=== PATIENT | female | born 1995 | race Two or more races ===

== ENCOUNTER 2025-05-15 14:52 | Observation (INO) | payer MEDICAID, SELFPAY ==
[2025-05-15] VITALS (7 sets, daily range): BP systolic 115–130; BP diastolic 75–95; PULSE 67–103; RESP 12–18; TEMP 36.4–36.8; O2SAT 98–100; BMI 27.3
--- NOTE | 2025-05-15 | XR_ITS ---
Examination: CT abdomen with intravenous contrast CT pelvis with intravenous contrast 2-D coronal reconstructions 2-D sagittal reconstructions Date and time of exam:May 15, 2025, 1843 hours INDICATIONS: Epigastric pain and nausea vomiting. CTDI: vol (mGy) 7.99 DLP: (mGycm) 422 Technique: Multiple axial sections of the abdomen and pelvis have been obtained. 64 slice high-resolution scanner used. 3 mm axial sections have been obtained, post intravenous injection 60 cc Isovue 370 2-D sagittal, coronal reconstructions obtained. Low dose protocols were performed. One or more of the following dose reduction techniques were used; automated exposure control, adjustment of the mA and/or KV according to patient size, use of iterative reconstruction technique. Findings: No focal liver or splenic lesions. No gallstones. No pancreatic edema. No renal or ureteral calculi. No hydronephrosis 10 mm fat-containing umbilical hernia. Fluid-filled enlarged appendix with thickened bennett and mild periappendiceal inflammatory change, axial images 140 through 154 No pelvic abscess 17 mm right ovarian follicular cyst Impression : Acute appendicitis, no pelvic abscess or perforation
--- NOTE | 2025-05-15 15:42 | EDNOTE_ITS ---
<Statement entered by Jennifer Rodriguez MD - 05/23/25 04:09> As co-signing physician, I was present and available for consult prn. I concur with the plan and care as documented by the midlevel provider. ED Abdominal Pain RME/HPI General Chief Complaint: Abdominal Pain Stated complaint: Abdominal pain to middle upper abdomen Time seen by provider: 05/15/25 15:07 Arrival date/time: 05/15/25 14:52 RME / HPI RME / HPI narrative: 30-year-old female presents to the ED with a complaint of epigastric abdominal pain, nausea that began this morning. She denies any previous occurrence. She states she is unable to eat anything due to the nausea. She denies any diarrhea but states she does have constipation. There is no family history of gallbladder disease or ulcers. She denies any fever or chills, upper res piratory complaints, dysuria or frequency. Related Data Previous Rx's ?Medication ?Instructions ?Recorded Phenazopyridine * (PYRIDIUM *) 100 mg PO TIDPC #14 tab s 05/16/15 Allergies Allergy/AdvReac Type Severity Reaction Status Date / Time No Known Allergies Allergy Mild No Uncoded 05/15/25 14:57 allergies to medication. Review of Systems Review of Systems Systems Reviewed: All systems reviewed, normal except as documented Past Medical History Social History SMOKING STATUS: Never smoker ED Exam Narrative Physical exam: Alert and oriented 30-year-old female, mild acute pain distress. Lungs are clear, regular rate and rhythm, bowel sounds are present, mild percussive tenderness in all 4 quadrants, tenderness to palpation in all 4 quadrants, unable to specify where it is worse. No pain with pelvic rock or heeltap. Negative psoas and obturator. No CVA tenderness. Moves all extremities well. Course Course Course Narrative: Vital signs blood pressure 120/80, pulse 75, respirations 18 and nonlabored, temperature 97.6, O2 sat 98% on room air. CBC reveals an elevated white count of 23.6, normal H&H and mildly elevated platelets of 453. ANC is elevated at 21.5. Lactic acid is normal at 1.0, CRP is normal at 0.7 and procalcitonin is normal at 0.04. CMP is normal. Renal function and LFTs are normal. Lipase is normal at 22 and amylase is mildly low at 28. Urinalysis reveals clear yellow urine with a specific gravity of 1.032 with 4+ ketones, 2+ blood, negative nitrates, positive leukocyte esterase, 4 RBCs, 2 WBCs and no bacteria. Urine hCG is negative and UDS is positive for marijuana only. CT of the abdomen and pelvis with contrast reveals: Acute appendicitis, no pelvic abscess or perforation. Patient was started on IV fluids of D5 half-normal saline. Initially she was given Pepcid 40 mg p.o., Protonix 40 mg p.o. and ondansetron [address] results, patient was started on ceftriaxone 2 g IV as well as metronidazole 500 mg IV. Discussed case with Dr. Rodriguez. Attempted contact with Dr. Roldan. Left message on his voicemail at [phone]. Dr Roldan returned the call at [phone]. He would like the patient moved to the main ED for his evaluation and surgical prep. Quality Measures Current suspected stage: ruled out Reason for ruling out sepsis: Patient does not meet sepsis criteria. Possible source: GI tract/intra-abdominal Blood cultures ordered: yes Antibiotic ordered: Yes Pertinent labs: 05/15/25 18:08 Lactic Acid 1.0 mMol/L (0.4-2.0) Procalcitonin 0.04 ng/ml (0.0-0.49) sepsis Orders Category Date Time Status CT Screening NOW Care 05/15/25 15:[address] Screening X1 Care 05/15/25 15:48 Active IV [Insert IV] NOW Care 05/15/25 15:48 Active NPO STAT Care 05/15/25 15:[address] abdomen pelvis w con Stat Exams 05/15/25 Completed Amylase Stat Lab 05/15/25 15:56 Completed Blood Culture (Lab) Stat Lab 05/15/25 18:08 Received CBC Stat Lab 05/15/25 15:56 Completed CRP [C-Reactive Protein] Stat Lab 05/15/25 18:08 Completed Comprehensive Metabolic Panel Stat Lab 05/15/25 15:56 Completed Drug Screen,Urine Stat Lab 05/15/25 17:00 Completed HCG Qualitative,Urine Stat Lab 05/15/25 17:00 Completed Lactic Acid [Lactate (Lactic Acid)] Stat Lab 05/15/25 18:08 Completed Lipase Stat Lab 05/15/25 15:56 Completed Magnesium Stat Lab 05/15/25 15:56 Completed Phosphorous Stat Lab 05/15/25 15:56 Completed Procalcitonin Stat Lab 05/15/25 18:08 Completed Urinalysis, C/S if Indicated Stat Lab 05/15/25 17:00 Completed Dextrose 5%-0.45% Ns [D5-1/2Ns] 1,000 ml Med 05/15/25 18:30 Active IV 100 mls/hr Famotidine [Pepcid] Med 05/15/25 15:45 Discontinued 40 mg PO X1 ONE Ondansetron Odt [Zofran Odt] Med 05/15/25 15:45 Discontinued 4 mg PO X1 ONE Pantoprazole [Protonix] Med 05/15/25 15:45 Discontinued 40 mg PO X1 ONE cefTRIAXone [Rocephin] 2 gm Med 05/15/25 19:28 Active SODIUM CHLORIDE 0.9% (Popper) [Ns 0.9% (P)] 50 ml IV QDAY@1400 metroNIDAZOLE/NS 500 MG IVPB [Flagyl 500 mg IV] Med 05/15/25 19:29 Active 500 mg in 100 ml IV X1 Vital Signs Vital signs: Vital Signs Temperature 97.6 F 05/15/25 15:05 Pulse Rate 75 05/15/25 15:05 Respiratory Rate 18 05/15/25 15:05 Blood Pressure 120/80 05/15/25 15:05 Pulse Oximetry (%) 98 05/15/25 15:05 Oxygen Delivery Method Room Air 05/15/25 15:05 Abdominal Pain MDM MDM Narrative MDM Narrative:: 30-year-old female presents to the ED with a complaint of epigastric abdominal pain, nausea that began this morning. She denies any previous occurrence. She states she is unable to eat anything due to the nausea. She denies any diarrhea but states she does have constipation. There is no family history of gallbladder disease or ulcers. She denies any fever or chills, upper respiratory complaints, dysuria or frequency. Alert and oriented 30-year-old female, mild acute pain distress. Lungs are clear, regular rate and rhythm, bowel sounds are present, mild percussive tenderness in all 4 quadrants, tenderness to palpation in all 4 quadrants, unable to specify where it is worse. No pain with pelvic rock or heeltap. Negative psoas and obturator. No CVA tenderness. Moves all extremities well. Vital signs blood pressure 120/80, pulse 75, respirations 18 and nonlabored, temperature 97.6, O2 sat 98% on room air. CBC reveals an elevated white count of 23.6, normal H&H and mildly elevated platelets of 453. ANC is elevated at 21.5. Lactic acid is normal at 1.0, CRP is normal at 0.7 and procalcitonin is normal at 0.04. CMP is normal. Renal function and LFTs are normal. Lipase is normal at 22 and amylase is mildly low at 28. Urinalysis reveals clear yellow urine with a specific gravity of 1.032 with 4+ ketones, 2+ blood, negative nitrates, positive leukocyte esterase, 4 RBCs, 2 WBCs and no bacteria. Urine hCG is negative and UDS is positive for marijuana only. CT of the abdomen and pelvis with contrast reveals: Acute appendicitis, no pelvic abscess or perforation. Patient was started on IV fluids of D5 half-normal saline. Initially she was given Pepcid 40 mg p.o., Protonix 40 mg p.o. and ondansetron [address] results, patient was started on ceftriaxone 2 g IV as well as metronidazole 500 mg IV. Discussed case with Dr. Rodriguez. Attempted contact with Dr. Roldan. Left message on his voicemail at [phone]. Dr Roldan returned the call at 2001. He would like the patient moved to the main ED for his evaluation and surgical prep. Patient data External records reviewed:: [facility] previous records Clinical information provided by:: patient Social determinants that could affect healthcare access:: none Patient has the following chronic illnesses:: N/A How is presenting disease/condition affected by chronic disease/condition?: no chronic disease Evaluation data The following diagnostics were reviewed and interpreted by me:: lab results and radiology exam(s) Lab and/or radiology exams considered but not ordered:: N/A Interpretation Summary: As noted above Medications / Prescriptions Medications or Prescriptions considered but not ordered:: N/A Medication administrations:: Medication Administration History Dextrose/Sodium Chloride (D5-1/2ns) 1,000 mls @ 100 mls/hr IV .Q10H MARCY Stop: 06/14/25 18:29 Last Admin: 05/15/25 19:20 Dose: 100 mls/hr Documented By: AUSTIN Ceftriaxone Sodium 2 gm/ (Sodium Chloride) 50 mls @ 100 mls/hr IV QDAY@1400 MARCY Stop: 05/22/25 19:27 Metronidazole (Flagyl 500 Mg Iv) 500 mg in 100 mls @ 100 mls/hr IV X1 ONE Stop: 05/15/25 20:28 Discontinued Medications Famotidine (Famotidine 20 Mg Tablet) 40 mg PO X1 ONE Stop: 05/15/25 15:46 Last Admin: 05/15/25 16:08 Dose: 40 mg Documented By: DL Ondansetron HCl (Ondansetron Odt 4 Mg Tabrap) 4 mg PO X1 ONE; Protocol Stop: 05/15/25 15:46 Last Admin: 05/15/25 16:08 Dose: 4 mg Documented By: DL Pantoprazole Sodium (Pantoprazole 40 Mg Tablet) 40 mg PO X1 ONE Stop: 05/15/25 15:46 Last Admin: 05/15/25 16:08 Dose: 40 mg Documented By: DL As noted above Consultations Consultation(s) initiated? (list below): Yes Consultation #1 (Physician, Specialty, Details): Dr Roldan, left message on his voicemail to return my call. Time: 19:55 Diagnosis Differential diagnosis abdominal pain: abdominal pain, acute appendicitis, diverticulitis, pancreatitis and other (Cholecystitis) Most likely diagnosis given after review of the tests above:: Acute appendicitis Admission Indicated Admission indicated?: indicated Explain why admission is indicated or not indicated:: Patient has acute appendicitis and needs IV antibiotics and surgery. Admission Request Was there a request for admission?: Yes Admission Attestation Admission request attestation: Discussed case with Dr Roldan regarding admission. Discussed patients ED course, exam findings, labs, and radiology results. The Dr Roldan agrees to evaluate the patient for surgery/admission. Disposition Plan Disposition Plan: Admit Discharge Plan Plan Patient Disposition: Admit Acute Care w/in Hospital Discharge Disposition comment: Stable Prescriptions/Referrals Prescriptions/Med Rec: No Action Phenazopyridine * (PYRIDIUM *) 100 MG tablet 100 mg PO TIDPC Qty: 14 0RF Referrals: No Primary/Family,Physician [Primary Care Provider] - In 1 week Problem List Clinical Impression: Acute appendicitis Patient/Caregiver Discharge Instructions Print Language: Occitan Stand Alone Forms: Yesenia Award Info., Patient Portal Info Letter PA/MANAGER RISK MANAGEMENT Supervising Physician PA/MANAGER RISK MANAGEMENT Supervising Physician: Dr. RODRIGUEZ
[2025-05-15] MEDS: ONDANSETRON ODT 4 MG TABRAP PO (16:08)
[2025-05-15] MEDS: FAMOTIDINE 20 MG TABLET 40 MG PO (16:08)
[2025-05-15] MEDS: PANTOPRAZOLE 40 MG TABLET PO (16:08)
[2025-05-15 16:21] LABS: Basophils # (Auto) 0.1 Thou/mm3 (0.0-0.2); Basophils % (Auto) 0 % (0-2.5); Eosinophils # (Auto) 0.0 Thou/mm3 (0.0-0.5); Eosinophils % (Auto) 0 % (0-10); Hematocrit 40.6 % (36.0-46.0); Hemoglobin 13.8 g/dL (12.0-16.0); Immature Granulocytes Auto 0.11 Thou/mm3 (0.00-0.00); Lymphocytes # (Auto) 0.9 Thou/mm3 (1.0-4.8); Lymphocytes % (Auto) 4 % (10-50); Mean Corpuscular HGB Conc 34.0 g/dl (31.0-37.0); Mean Corpuscular Hemoglobin 27.8 pg (25.0-35.0); Mean Corpuscular Volume 82 fL (80-100); Monocytes # (Auto) 1.0 Thou/mm3 (0.0-0.8); Monocytes % (Auto) 4 % (0-12); Neutrophils # (Auto) 21.5 Thou/mm3 (1.8-7.7); Neutrophils % (Auto) 91 % (37-80); Nucleated Red Blood Cell # 0.00 Thou/mm3 (0.00-0.00); Nucleated Red Blood Cell % 0 /100 WBC (0); Platelet Count 453 Thou/mm3 (140-440); RDW Standard Deviation 39.3 fL (36.4-46.3); Red Blood Count 4.96 Miln/mm3 (4.00-5.20); White Blood Count 23.6 Thou/mm3 (3.6-11.0)
[2025-05-15 16:43] LABS: Alanine Aminotransferase 10 U/L (10-49); Albumin, Serum 5.0 gm/dL (3.5-5.0); Albumin/Globulin Ratio 1.8 (1.2-2.2); Alkaline Phosphatase 94 U/L (46-116); Amylase 28 U/L (30-118); Anion Gap 12 (7-16); Aspartate Amino Transferase 19 U/L (0-34); BUN/Creatinine Ratio 16 Ratio (12-20); Bilirubin,Total 0.9 mg/dL (0.3-1.2); Blood Urea Nitrogen 11 mg/dL (9-23); Calcium 9.3 mg/dL (8.3-10.6); Calcium (Corrected) 9.3 mg/dL (8.5-10.1); Carbon Dioxide 24.2 mMol/L (20.0-31.0); Chloride 105 mMol/L (98-107); Creatinine (Component) 0.7 mg/dL (0.6-1.3); Estimated Creatinine Clearance 115.5 mL/min (>60); Globulin 2.8 gm/dL (2.3-3.5); Glucose 86 mg/dL (74-106); Lipase 22 U/L (12-53); Magnesium 1.6 mg/dL (1.6-2.6); Osmolality,Calculated 279 (275-295); Phosphorous 2.9 mg/dL (2.4-5.1); Potassium 3.7 mMol/L (3.4-5.1); Sodium 141 mMol/L (136-145); Total Protein 7.8 gm/dL (5.7-8.2); eGFR > 60 See Note
[2025-05-15 17:10] LABS: Collection Type, Urine Clean Catch
[2025-05-15 17:40] LABS: HCG Qualitative,Urine Negative
[2025-05-15 17:41] LABS: Amphetamine/Methamp Scrn,U Negative (Negative); Barbiturate Screen,Urine Negative (Negative); Benzodiazepines Screen,Urine Negative (Negative); Benzoylecgonine Screen, Ur Negative (Negative); Fentanyl Screen,Urine Negative (Negative); Opiate Screen,Urine Negative (Negative); THC Screen,Urine Positive (Negative)
[2025-05-15 17:51] LABS: Bacteria,Urine Rare; Bilirubin,Urine Negative (Negative); Blood,Urine 2+ (Negative); Clarity,Urine Clear (Clear/Hazy); Color,Urine Yellow (Lt Yel-Yel); Culture Indicated,Urine Not Indicated; Glucose, Urine Negative (Negative); Hyaline Casts,Urine < 1 /hpf (0-1); Ketones,Urine 4+ (Negative); Leukocyte Esterase,Urine Positive (Negative); Nitrite,Urine Negative (Negative); PH,Urine 5.5 (5.0-7.0); Protein,Urine Trace (Neg - Trace); RBC,Urine 4 /hpf (0-3); Specific Gravity,Urine 1.032 (1.001-1.035); Squamous Epithelial Cell,Urine 12 /hpf (0-5); Urobilinogen,Urine Negative mg/dL (0.0-1.0); WBC,Urine 2 /hpf (0-5)
[2025-05-15 18:16] LABS: Lactate (Lactic Acid) 1.0 mMol/L (0.4-2.0)
[2025-05-15 18:44] LABS: C-Reactive Protein 0.7 mg/dL (0.0-0.9); Procalcitonin 0.04 ng/ml (0.0-0.49)
[2025-05-15] MEDS: DEXTROSE 5%-0.45% NS 1,000 ML 100 ML IV (19:20)
[2025-05-15] MEDS: cefTRIAXone 2 GM in SODIUM CHLORIDE 0.9% (Popper) 50 ML IV (20:21)
--- NOTE | 2025-05-15 21:19 | PD.SURHP ---
HPI Date of Admission 05/15/25 20:09 Chief Complaint Chief Complaint: This patient is a 30-year-old female who is seen because of acute appendicitis HPI History of present illness revealed that the patient was in her usual health until this morning when she woke up with a severe pain in the epigastric region. She had 1 vomiting. The pain was so severe and she could not tolerate and she could not eat anything. She had a normal bowel movement but rather constipated. She had no fever or chills. She came to the emergency room and was found to have tenderness diffusely and a CT scan showed acute appendicitis. She denies any other major medical illness in the past Past Medical History Past Medical History CARDIAC: Negative Cardiac Disorders or Congestive Heart Failure RESPIRATORY: Negative Chronic Obstructive Pulmonary Disease (COPD) or Asthma GENITOURINARY: Negative Renal Disease ENDOCRINE: Negative Diabetes Mellitus Type 1 or Diabetes Mellitus Type 2 HEMATOLOGIC: Negative Sickle Cell Disease OTHER HISTORY: Negative Blood Transfusions, Blood Transfusion Reaction or Anesthesia Reactions Social History SMOKING STATUS: Never smoker Meds Home Medications and Allergies Allergies Allergy/AdvReac Type Severity Reaction Status Date / Time No Known Allergies Allergy Mild No Uncoded 05/15/25 14:57 allergies to medication. Exam Vital Signs Temp Pulse Resp BP Pulse Ox O2 Del Method 98.3 F 71 18 117/75 99 Room Air 05/15/25 19:50 05/15/25 19:50 05/15/25 19:50 05/15/25 19:50 05/15/25 19:50 05/15/25 19:50 Narrative Exam Patient is a well-built well-nourished female who appeared to be in his stated age. She is 5 feet 4 inches tall weighing 159 pounds. Her vital signs are normal Routine Cardiovascular Exam Comments: Sinus rhythm Routine Abdominal Exam Comments: Examination of the abdomen showed some tenderness in the lower abdomen but more so on the right lower quadrant. Routine Rectal Exam Comments: Deferred Routine Exam Comments: Deferred Routine Extremities Exam Comments: Within normal limits Results Results: Laboratory Laboratory Narrative: WBC showed 23,600 with a shift to the lab Results: Imaging Imaging narrative: CT scan of the abdomen showed acute appendicitis Assessment & Plan Additional Assessment Additional comments: Impression: Acute appendicitis Plan Plan advised the patient to undergo laparoscopic appendectomy. The procedure was explained to her in detail patient is agreeable. Quality Measures Quality Measures sepsis Current suspected stage: sepsis Possible source: GI tract/intra-abdominal Blood cultures ordered: yes Antibiotic ordered: Yes
--- NOTE | 2025-05-15 22:50 | PD.SUROPNT ---
Date of Procedure 05/15/25 Pre Op Diagnosis Acute appendicitis Post Op Diagnosis Same Procedure Laparoscopic appendectomy Findings Patient was found to have inflamed appendix medial to the cecum Procedure Description After the patient was placed in supine position and anesthesia was administered with endotracheal intubation. Abdomen was prepped with ChloraPrep solution and draped in a sterile manner. A timeout was performed and a small incision was made just above the umbilicus. Fascia was cleaned and Veress needle was inserted to obtain a pneumoperitoneum up to 15 mmHg. Then I introduced a 12 mm trocar at the umbilicus with a 10 mm camera. Patient was kept in Trendelenburg position with the left lateral tilt. Intra-abdominal organs were visualized and this showed omentum covering the right lower quadrant. A 5 mm trocar was inserted in the right lower quadrant under direct vision and using a laparoscopic Holly I move the omentum and identified the appendix. Appendix was inflamed in its entire length and was located medial to the cecum. Another 5 mm trocar was inserted in the left lower quadrant under direct vision and using Harmonic balta I dissected the mesoappendix cauterizing the vessels. When the base of the appendix was reached this was stapled using an Endo cutter 35 power brandon. Then the appendix was retrieved through the Endopouch through the umbilical port. Then after irrigating and cleaning the pelvis and the right lower quadrant all the trocars were pulled out and the pneumoperitoneum was let out. Fascia was closed with interrupted 0 Ethibond and then I injected half percent Marcaine with epinephrine for analgesia. Skin was then closed with interrupted 4-0 Monocryl stitches and a Tegaderm dressing was applied. Patient tolerated the procedure well and returned to recovery room in stable condition. Anesthesia GETA Pathology / specimen Other (Appendix that was inflamed) Estimated Blood Loss 30 Surgeon Maira Roldan MD Surgical Staff Operation Date: 05/15/25 21:45 Case Staff Anesthesiologist: Fly Marquez RN First Assistant: Nel Rhodes
[2025-05-15] MEDS: ONDANSETRON INJ 2 MG/ML INJ 2 ML 4 MG IVP (23:13)
--- NOTE | 2025-05-15 23:25 | SUR.PHASEI ---
2251: pt arrived to PACU via gurney drowsy but arouses to voice, breathing unlabored, dressing to abdomen clean, dry, and intact 2320: pt tolerating ice chips 2325: pt awake, alert, able to follow commands, breathing unlabored, dressing to abdomen clean, dry, and intact, VS stable, pt denies pain, report called to Sera RN, pt transferred to room at this time
--- NOTE | 2025-05-15 23:30 | PC.NURSE ---
Report received, pt arrived to room 371 via gurney, alert/oriented able to transfer self, nursing care began at this time.
[2025-05-15] MEDS: SODIUM CHLORIDE 0.9% 1000 ML 1,000 ML 125 ML IV (23:57)
[2025-05-15] MEDS: CEFOXITIN 2 GM in SODIUM CHLORIDE 0.9% (Popper) 50 ML IV (23:57)
[2025-05-16 00:09] VITALS: BMI 26.2
[2025-05-16] MEDS: MORPHINE SULF INJ 10 MG/ML VIAL 4 MG IVP (02:34)
[2025-05-16] MEDS: ONDANSETRON INJ 2 MG/ML INJ 2 ML 4 MG IVP (02:34)
[2025-05-16 04:00] VITALS: BP 100/65; PULSE 64; RESP 17; TEMP 36.4; O2SAT 96
[2025-05-16] MEDS: CEFOXITIN 2 GM in SODIUM CHLORIDE 0.9% (Popper) 50 ML IV ×2 (06:09→12:07)
[2025-05-16 06:20] LABS: Basophils # (Auto) 0.0 Thou/mm3 (0.0-0.2); Basophils % (Auto) 0 % (0-2.5); Eosinophils # (Auto) 0.0 Thou/mm3 (0.0-0.5); Eosinophils % (Auto) 0 % (0-10); Hematocrit 37.4 % (36.0-46.0); Hemoglobin 12.7 g/dL (12.0-16.0); Immature Granulocytes Auto 0.05 Thou/mm3 (0.00-0.00); Lymphocytes # (Auto) 0.6 Thou/mm3 (1.0-4.8); Lymphocytes % (Auto) 4 % (10-50); Mean Corpuscular HGB Conc 34.0 g/dl (31.0-37.0); Mean Corpuscular Hemoglobin 28.2 pg (25.0-35.0); Mean Corpuscular Volume 83 fL (80-100); Monocytes # (Auto) 0.1 Thou/mm3 (0.0-0.8); Monocytes % (Auto) 1 % (0-12); Neutrophils # (Auto) 11.7 Thou/mm3 (1.8-7.7); Neutrophils % (Auto) 94 % (37-80); Nucleated Red Blood Cell # 0.00 Thou/mm3 (0.00-0.00); Nucleated Red Blood Cell % 0 /100 WBC (0); Platelet Count 425 Thou/mm3 (140-440); RDW Standard Deviation 40.2 fL (36.4-46.3); Red Blood Count 4.51 Miln/mm3 (4.00-5.20); White Blood Count 12.4 Thou/mm3 (3.6-11.0)
[2025-05-16 08:00] VITALS: BP 98/60; PULSE 67; RESP 18; TEMP 36.2; O2SAT 97
[2025-05-16] MEDS: SODIUM CHLORIDE 0.9% 1000 ML 1,000 ML 125 ML IV (08:51)
[2025-05-16 12:00] VITALS: BP 104/64; PULSE 84; RESP 18; TEMP 36.4; O2SAT 96
--- NOTE | 2025-05-16 13:55 | PD.SURPROG ---
Documentation for date of: 05/16/25 Subjective Subjective Brief History: History of present illness revealed that the patient was in her usual health until this morning when she woke up with a severe pain in the epigastric region. She had 1 vomiting. The pain was so severe and she could not tolerate and she could not eat anything. She had a normal bowel movement but rather constipated. She had no fever or chills. She came to the emergency room and was found to have tenderness diffusely and a CT scan showed acute appendicitis. She denies any other major medical illness in the past Narrative: The patient is doing well after appendectomy last night. She is tolerating clear liquids. Exam Vital Signs Temp Pulse Resp BP Pulse Ox O2 Del Method O2 Flow Rate 97.6 F 84 18 104/64 96 Room Air 2 05/16/25 12:00 05/16/25 12:00 05/16/25 12:00 05/16/25 12:00 05/16/25 12:05/16/25 12:00 05/15/25 23:01 Her vital signs are normal Routine Abdominal Exam Comments: Abdominal examination is benign Results Results: Laboratory Laboratory Narrative: Laboratory results show decreasing WBC Assessment & Plan Assessment Additional comments: Impression: Stable postoperative course following appendectomy Plan Plan: We shall discharge the patient today and follow her up in 1 week in my office PROCEDURES: Procedures Laparoscopic appendectomy
[2025-05-16 16:00] VITALS: BP 106/84; PULSE 84; RESP 18; TEMP 36.4; O2SAT 98
== END 2025-05-16 15:55 | disposition home or self-care (01) ==
LOC: SERX 20:08 → SERHOLD 20:27 → S3SX 23:40
PROVIDERS: Physician Assistant; Admitting Provider Surgery; Emergency Provider Emergency Medicine; Visit Provider Surgery
PROC: 0DTJ4ZZ Resection of Appendix, Percutaneous Endoscopic Approach (ICD-10-PCS; CPT 44970; principal; 2025-05-15 21:30)
DX: K35.30 Acute appendicitis with localized peritonitis, without perforation or gangrene (principal); K59.00 Constipation, unspecified
CPT/HCPCS: 44970; 36415; 74177; 80053; 80307; 81001; 81025; 82150; 83605; 83690; 83735; 84100; 84145; 85025; 86140; 87040; 96361; 96365; 96366; 96375; 96376; A4217; A4649; C1713; G0378; J0694; J0696; J1100; J1885; J2250; J2270; J2405; J2704; J3010; J3490; J7030; J7042; J7050; Q0162; Q9967; A9270